=== PATIENT | male | born 2000 | race Caucasian/White ===

== ENCOUNTER 2020-12-13 18:03 | Emergency (ER) | payer MEDICAID, SELFPAY ==
[2020-12-13 18:04] VITALS: BP 147/76; PULSE 107; RESP 18; TEMP 36.6; O2SAT 94; BMI 28.0
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
== END 2020-12-13 18:50 | disposition home or self-care (01) ==
PROVIDERS: Emergency Provider Emergency Medicine; PCP Family Medicine
DX: S63.502A Unspecified sprain of left wrist, initial encounter (principal); V43.62XA Car passenger injured in collision with other type car in traffic accident, initial encounter; Y93.89 Activity, other specified; Y92.410 Unspecified street and highway as the place of occurrence of the external cause; Y99.9 Unspecified external cause status
CPT/HCPCS: 73110; 99282

== ENCOUNTER → 2021-03-16 22:44 | Outpatient (CLI) | payer MEDICAID, SELFPAY ==
[2021-03-18 20:08] LABS: Covid Inpatient test code BILL Performed (.)
== END ==
PROVIDERS: PCP Family Medicine; Visit Provider Physician Assistant Surgical
DX: Z11.52 Encounter for screening for COVID-19 (principal)
CPT/HCPCS: 87635; U0005; U0003

== ENCOUNTER 2023-05-21 20:20 | Emergency (ER) | payer MEDICAID, SELFPAY ==
[2023-05-21 20:21] VITALS: BP 120/52; PULSE 100; RESP 18; TEMP 36.6; O2SAT 99
[2023-05-21 20:34] VITALS: BMI 24.3
[2023-05-21] MEDS: Ondansetron 4 MG/2 ML Vial IV (20:37)
[2023-05-21] MEDS: Naloxone 2 MG/2 ML Syringe IV (21:04)
--- NOTE | 2023-05-21 21:05 | ED.RN ---
UNABLE TO SCAN PAULIE, IT COMES BACK NOT VALID MEDICATION
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
[2023-05-21 21:20] VITALS: BP 128/72; PULSE 99; RESP 20; O2SAT 99
--- NOTE | 2023-05-21 21:34 | EX.ED.SAOD ---
HPI History of Present Illness Chief Complaint: Substance Abuse Informant: patient, parent and spouse/S.O. Narrative Narrative: Patient presents via EMS secondary to drug use. Girlfriend at bedside states that patient used a new kind of marijuana tonight. He reportedly used marijuana and spice. He did use more than normal. Girlfriend states shortly after taking a hit of this new marijuana he became very agitated and running around. He felt like he was going to . He had pounding his chest. She states he went to the bathroom but did not vomit. She helped him back to his chair and he became unresponsive. EMS notes that when he was placed in the back of the squad and family was not around, patient would answer questions appropriately and interacts. He did reportedly vomit on the way to the hospital and did vomit once on arrival. Patient was given Zofran and Narcan on arrival. Nursing staff notes he did not have significant change in behavior after Narcan. [facility] Medical History Acute conjunctivitis, bilateral Acute otitis media, right Reactive airway disease Home Medications albuterol sulfate 90 mcg/actuation aerosol inhaler 2 puff inhalation 6XD PRN shortness of breath or wheezing #8.5 grams 12/09/22 [Rx Last Taken Unknown] Allergy/AdvReac Type Severity Reaction Status Date / Time pseudoephedrine Allergy NEEDS Verified 05/21/23 20:24 FOLLOW-UP Family History Other CVA (cerebral vascular accident) Social History Smoking Status: Never smoker ROS ROS ED Review of Systems ROS Unobtainable: due to mental condition EXAM Physical Exam Narrative Exam Narrative: Patient resting with eyes closed. He will occasionally nod to some questions. He states he does not remember what happened. Const Vital Signs: 05/21/23 20:21 05/21/23 21:20 05/21/23 22:00 Temperature 97.9 F Temperature Source Temporal Pulse Rate 100 99 96 Respiratory Rate 18 20 H 16 Blood Pressure 120/52 L 128/72 H 113/59 L Blood Pressure Mean 74 90 77 Pulse Ox 99 99 99 Oxygen Delivery Method Room Air Room Air Room Air Positive well nourished HEENT Reports moist mucous membranes Eyes Eyes Narrative: Pupils enlarged at 4 to 5 mm. Chest Wall inspection of chest normal and palpation of chest normal Resp normal respiratory effort and clear to auscultation bilaterally Cardio Rate: tachycardic GI soft to palpation and non-tender Extremity General Extremety ED: Negative for edema General Extremity: Negative for edema Neuro Neuro Narrative: Patient resting with eyes closed. Maintaining airway without difficulty. MDM MDM MDM Narrative Medical decision making narrative: I discussed with patient and family that we will obtain blood work as well as a tox screen. I did warn them that a lot of the synthetic drugs do not show up on her tox screens. Patient has been maintained on psychiatric nursing assistant to evaluate heart rate, blood pressure, and O2 saturation. He was given IV fluids. Lab Data Attestation: I reviewed the patient's lab results. Labs: Laboratory Results - last 24 hr 05/21/23 05/21/23 21:29 22:00 WBC 24.7 H RBC 5.70 Hgb 16.0 Hct 50.7 MCV 88.9 MCH 28.1 MCHC 31.6 L RDW Std Deviation 40.2 RDW Coeff of Gavin 12.3 Plt Count 309 MPV 9.8 Immature Gran % (Auto) 1.000 H Neut % (Auto) 78.3 H Lymph % (Auto) 12.3 L [place] % (Auto) 7.4 Eos % (Auto) 0.6 Baso % (Auto) 0.4 Absolute Neuts (auto) 19.4 H Absolute Lymphs (auto) 3.05 Nucleated RBC % 0 Differential Comment SCANNED Diff Path Review May foll Sodium 139 Potassium 3.2 L Chloride 104 Carbon Dioxide 30.0 Anion Gap 5 BUN 18 Creatinine 1.16 Estim Creat Clear Calc 118.37 Est GFR (MDRD) Af Amer 100 Est GFR (MDRD) Non-Af 82 BUN/Creatinine Ratio 15.5 Glucose 174 H Calcium 9.0 Total Bilirubin 0.10 L Direct Bilirubin 0.05 AST 22 ALT 28 Alkaline Phosphatase 102 Total Protein 7.4 Albumin 3.8 Globulin 3.6 Urine Opiates Screen NEGATIVE Urine Methadone Screen NEGATIVE Ur Barbiturates Screen NEGATIVE Ur Phencyclidine Scrn NEGATIVE Ur Amphetamines Screen NEGATIVE MDMA (Ecstasy) Screen NEGATIVE U Benzodiazepines Scrn NEGATIVE Urine Cocaine Screen NEGATIVE U Cannabinoids Screen POSITIVE H Ur Drug Screen Comment Ethyl Alcohol < 3.0 Treatment and Re-Evaluation Narrative: CBC with a white count of 24.7 with 78% neutrophils. This is likely demargination from vomiting. Hemoglobin is normal at 16. Chemistry studies reveal potassium 3.2. Renal function is normal. Glucose is 174. Tox screen is positive only for cannabinoids. EtOH is negative. At this time when I enter the room patient will open his eyes and look at me. He will nod to answer questions. I advised him that once he is awake enough to get up and move around as well as eat and drink something he can go home. He gives me a thumbs up. Plan will be discharged after further observation. Discharge Plan Triage Chief Complaint: Substance Abuse ED Provider: Yesi Urbina Dx/Rx/DC Orders Clinical Impression: Marijuana abuse Instructions: ED Marijuana Abuse Prescriptions: No Action albuterol sulfate 90 mcg/actuation HFA aerosol inhaler 2 puff inhalation 6XD PRN (Reason: shortness of breath or wheezing) Qty: 8.5 0RF Primary Care Provider: Lamin Fletcher Referrals: Lamin Fletcher MD [Primary Care Provider] - As Needed Disposition Disposition: Home, Self Care
[2023-05-21 21:37] LABS: Absolute Lymphocyte Count 3.05 X10^3/uL (0.83-4.51); Absolute Neutrophil Count 19.4 X10^3/uL (2.0-7.7); Basophil# 0.11 X10^3/uL; Basophil% 0.4 % (0-1); Eosinophil# 0.15 X10^3/uL; Eosinophils% 0.6 % (0-5); Hematocrit 50.7 % (40-54); Lymphocyte # 3.05 X10^3/ul (0.83-4.51); Lymphocyte % 12.3 % (19-41); Mean Corp Hgb Conc 31.6 g/dL (32-36); Mean Corpuscular Hgb 28.1 pg (27.0-32.0); Mean Corpuscular Volume 88.9 fL (80-94); Mean Platelet Vol. 9.8 fl (6.2-12.0); Monocyte# 1.82 X10^3/uL; Monocyte% 7.4 % (0-10); NRBC Flagged by Analyzer 0 % (0-5); Neutrophil # 19.35 X10^3/uL (2.7-7.7); Neutrophil % 78.3 % (47-70); POSITIVE DIFFERENTIAL YES; Platelet Count 309 K/mm3 (150-450); RBC Distribution Width CV 12.3 % (11.6-14.6); RBC Distribution Width SD 40.2 fl (35.1-43.9); White Blood Count 24.7 K/mm3 (4.4-11.0)
[2023-05-21] MEDS: 0.9% Normal Saline (1000mL) 1,000 ML 1000 ML IV (21:37)
[2023-05-21 21:40] LABS: Differential Indicated SCAN CRITERIA MET
[2023-05-21 21:50] LABS: Differential Comment SCANNED
[2023-05-21 21:54] LABS: AST(SGOT) 22 U/L (15-37); Alanine Aminotransfer ALT/SGPT 28 U/L (16-61); Albumin, Serum 3.8 g/dL (3.2-5.0); Alkaline Phosphatase 102 U/L (45-117); Anion Gap 5 (5-15); BUN 18 mg/dL (7-18); BUN/Creat Ratio 15.5 RATIO (10-20); Bilirubin, Direct 0.05 mg/dL (0.00-0.30); Chloride 104 mmol/L (98-107); Creatinine, Serum 1.16 mg/dL (0.70-1.30); EST Glomerular Filtration Rate 82 mL/min (>60); Est Glom Filt Rate - Afr Amer 100 mL/min (>60); Estimated Creatinine Clearance 118.37 ml/min; Globulin 3.6 g/dL (2.2-4.2); Glucose 174 mg/dL (74-106); Potassium 3.2 mmol/L (3.5-5.1); Protein, Total 7.4 g/dL (6.4-8.2); Sodium Level 139 mmol/L (136-145)
[2023-05-21 21:58] LABS: Alcohol, Blood (Medical)-Serum < 3.0 mg/dL
[2023-05-21 22:00] VITALS: BP 113/59; PULSE 96; RESP 16; O2SAT 99
[2023-05-21 22:30] LABS: Amphetamine Urine VISTA NEGATIVE (<1000 ng/mL); Barbiturate Urine VISTA NEGATIVE (< 200 ng/mL); Benzodiazepine Urine VISTA NEGATIVE (< 200 ng/mL); Cocaine Urine VISTA NEGATIVE (< 300 ng/mL); Ecstacy Urine VISTA NEGATIVE (< 500 ng/mL); Methadone Urine VISTA NEGATIVE (< 300 ng/mL); PCP Urine VISTA NEGATIVE (< 25 ng/mL); THC Urine VISTA POSITIVE (< 50 ng/mL); Vista UDS pH Range 4
[2023-05-21] MEDS: 0.9% Normal Saline (1000mL) 1,000 ML 150 ML IV (22:50)
[2023-05-22 00:11] VITALS: BP 104/65; PULSE 98; RESP 18
[2023-05-23 09:50] LABS: Pathologist Review Reviewed
== END 2023-05-22 00:13 | disposition home or self-care (01) ==
PROVIDERS: Emergency Provider Emergency Medicine; PCP Family Medicine; Visit Provider Emergency Medicine
DX: F12.10 Cannabis abuse, uncomplicated (principal)
CPT/HCPCS: 80048; 80076; 80307; 82077; 85025; 96361; 96374; 99285; J7030; A4216; J2405